=== PATIENT | female | born 1985 | race Two or more races ===

== ENCOUNTER 2020-03-15 12:29 | Emergency (ER) | payer OTHER ==
[~2020-03-15] VITALS: Ht 165.1 cm; Wt 53.1 kg
[2020-03-15] MEDS ORDERED: HUMALOG100 UNIT/1 (12:43)
[2020-03-15] MEDS ORDERED: LANTUS SOL100 UNIT/1 SQ (12:43)
[2020-03-15] MEDS ORDERED: DEXILANT60 MG PO (12:44)
== END 2020-03-15 22:09 | disposition home or self-care (01) ==
LOC: ER 12:29
DX: K90.0 Celiac disease (principal); E10.9 Type 1 diabetes mellitus without complications; D50.8 Other iron deficiency anemias; Z03.818 Encounter for observation for suspected exposure to other biological agents ruled out; R10.13 Epigastric pain; R11.2 Nausea with vomiting, unspecified